=== PATIENT | female | born 1985 ===

== ENCOUNTER 2017-12-20 01:15 | Emergency (ER) | payer SELFPAY ==
--- NOTE | 2017-12-20 03:00 | EDM.PDOC ---
ED HPI GENERAL MEDICAL PROBLEM - General Chief Complaint: MEDICAL OFFICE ASSISTANT Problem Stated Complaint: 8 Months , can't sleep, baby active Time Seen by Provider: 12/20/17 01:25 Source of Information: Reports: Patient History Limitations: Reports: No Limitations - History of Present Illness INITIAL COMMENTS - FREE TEXT/NARRATIVE: This pt. presents to ER with complaints of inability to sleep. Pt. states that she is 30 weeks gestation and states that the fetus is active and moving around inhibiting her ability to sleep. She states that she is also experiencing lower lateral abdominal pain. She is concerned that there is something wrong with the baby and requests evaluation. She states that she is not experiencing lack of movement, vaginal bleeding, or discharge. She is . She states that her next OB appointment is tomorrow. Onset: Today Onset Date: 12/20/17 Location: Reports: Abdomen Quality: Reports: Ache, Pressure - Related Data Allergies Allergy/AdvReac Type Severity Reaction Status Date / Time No Known Allergies Allergy Verified 12/20/17 01:40 Home Meds: Home Meds . [No Known Home Meds] 12/20/17 [History] ED ROS GENERAL - Review of Systems Review Of Systems: See Below Constitutional: Reports: No Symptoms HEENT: Reports: No Symptoms Respiratory: Reports: No Symptoms Cardiovascular: Reports: No Symptoms Endocrine: Reports: No Symptoms GI/Abdominal: Reports: Abdominal Pain : Reports: No Symptoms Musculoskeletal: Reports: No Symptoms Skin: Reports: No Symptoms Neurological: Reports: No Symptoms Psychiatric: Reports: No Symptoms Hematologic/Lymphatic: Reports: No Symptoms Immunologic: Reports: No Symptoms ED EXAM, GENERAL - Physical Exam Exam: See Below Exam Limited By: No Limitations General Appearance: Alert, WD/WN, No Apparent Distress Respiratory/Chest: No Respiratory Distress, Lungs Clear, Normal Breath Sounds, No Accessory Muscle Use, Chest Non-Tender Cardiovascular: Normal Peripheral Pulses, Regular Rate, Rhythm, No Edema, No Gallop, No JVD, No Murmur, No Rub Peripheral Pulses: 2+: Radial (L), Radial (R) (Female) Exam: Uterine Tenderness Back Exam: Other (diffuse low back pain) Skin Exam: Warm, Dry, Intact, Normal Color, No Rash Departure - Departure Time of Disposition: 02:30 Disposition: Home, Self-Care 01 Condition: Good Clinical Impression: Round ligament pain - Discharge Information Instructions: Round Ligament Pain Forms: ED Department Discharge Additional Instructions: Follow-up with OB tomorrow. It is common to have back and lower abdominal pain this far along in the . It is good that the baby is active. This is a sign of a healthy baby. heart tones were normal. Remember that we do not deliver babies at this facility, unless it is an emergency.
== END 2017-12-20 02:06 | disposition home or self-care (01) ==
LOC: VM.ED 01:15
DX: O99.89 Other specified diseases and conditions complicating pregnancy, childbirth and the puerperium (principal); R10.2 Pelvic and perineal pain; Z3A.08 8 weeks gestation of pregnancy
CPT/HCPCS: 99282